=== PATIENT | female | born 1990 | race Two or more races ===

== ENCOUNTER 2022-05-23 09:22 | Emergency (ER) | payer BC ==
[~2022-05-23] VITALS: Ht 177.8 cm; Wt 74.8 kg
[2022-05-23] MEDS ORDERED: NAPROXEN500 MG PO (10:41)
== END 2022-05-23 14:01 | disposition home or self-care (01) ==
LOC: ER 09:22
DX: M25.522 Pain in left elbow (principal); M25.512 Pain in left shoulder